=== PATIENT | male | born 1990 | race Asian ===

== ENCOUNTER 2018-06-04 18:50 | Emergency (ER) | payer OTHER ==
[2018-06-04] MEDS ORDERED: HYDROcodone/Acetaminophen 10/325 mg Tablet ONE (19:06)
[2018-06-04] MEDS ORDERED: Adacel (T-DAP) 0.5 ML VIAL ONE ×2 (19:08→19:24)
[2018-06-04] MEDS ORDERED: Lidocaine 1% (PF) 30 ML VIAL ONE (19:18)
--- NOTE | 2018-06-04 19:51 | RAD ---
THREE VIEWS RIGHT FIFTH FINGER: Date: 06-04-18 Comparison: None. History: Finger injury. FINDINGS: There is soft tissue irregularity involving the medial aspect of the fifth finger distally suggesting laceration. No associated radiopaque foreign body. There is no displaced fracture or evidence of dis location. IMPRESSION: No acute osseous abnormality. POS: [facility]
[2018-06-04] MEDS ORDERED: Bacitracin Zinc 1 Packet ONE (20:18)
== END 2018-06-04 20:30 | disposition home or self-care (01) ==
LOC: ERS 18:50
DX: S61.216A Laceration without foreign body of right little finger without damage to nail, initial encounter (principal); Z23 Encounter for immunization; W29.8XXA Contact with other powered hand tools and household machinery, initial encounter
CPT/HCPCS: 12001; 90471; 90715; J2001